=== PATIENT | female | born 1945 | race Caucasian/White ===

== ENCOUNTER 2017-11-15 16:53 | Inpatient (IN) | payer MEDICARE, OTHER ==
--- NOTE | 2017-11-15 17:52 | ED Physician Chart ---
ED Chief Complaint/HPI - Patient Information Date Seen:: 11/15/17 Time Seen:: 17:40 Chief Complaint:: combative behavior History of Present Illness:: Patient's been exhibiting combative behavior at his group home facility. She was reeportedly throwing food at others there. Historian:: Patient, Medical Records Review:: Transfer documents Reviewed ED Review of Systems - Review of Systems General/Constitutional: No fever, No chills Skin: No skin lesions Head: No headache Eyes: No loss of vision ENT: No earache Neck: No neck pain Cardio Vascular: No chest pain, No palpitations Pulmonary: No SOB GI: No nausea, No vomiting, No diarrhea G/U: No dysuria Musculoskeletal: No bone or joint pain, No back pain, No muscle pain Endocrine: No polyuria, No polydipsia Psychiatric: Prior psych history ED Past Medical History - Past Medical History Past Medical History: HTN, DM, Asthma/COPD, CVA/TIA, Other (acute on chronic respiratory failure; dependence on supplemental oxygen; sleep apnea; status post pulmonary edema; anemia; obesity; hypokalemia; major depression) Family History: Other (unavailable; patient is confused) Social History: Non Smoker, No Alcohol Surgical History: other (states she's had more than 20 surgeries) Family Medical History - Family Member Mother History Unknown: Yes Ethnicity: Non- Living Status: ED Physical Exam - Physical Examination General/Constitutional: Awake, Well-developed, well-nourished, Alert Other Gen/Cons comments:: Patient confused; states the year is 2012 Head: Atraumatic Eyes: Lids, conjuctiva normal, PERRL Skin: Nl inspection, No rash ENMT: External ears, nose nl, Nasal exam nl Other ENMT comments:: Edentulous Neck: No nuchal rigidity Respiratory: Nl effort/Exclusion, Clear to Auscultation Cardio Vascular: RRR, No murmur, gallop, rubs, NL S1 S2 GI: No tenderness/rebounding/guarding, No organomegaly Other Extremities comments:: 2 out of 4 pretibial pitting edema Neuro/Psych: No focal deficits ED Labs/Radiology/EKG Results - Lab Results Results: Laboratory Results - last 24 hr 11/15/17 11/15/17 18:05 18:05 WBC 5.9 RBC 4.22 Hgb 12.8 Hct 38.2 L MCV 90.5 MCH 30.3 MCHC Differential 33.5 RDW 16.0 Plt Count 268 MPV 7.6 Neutrophils % 50.9 Lymphocytes % 38.9 Monocytes % 7.9 Eosinophils % 2.0 Basophils % 0.3 Sodium 136 Potassium 3.8 Chloride 102 Carbon Dioxide 26.9 Anion Gap 10.9 BUN 24 Creatinine 1.3 H Est GFR ( Amer) TNP Est GFR (Non-Af Amer) TNP BUN/Creatinine Ratio 18.5 Glucose 94 Calcium 8.8 Total Bilirubin 0.3 AST 21 ALT 16 Alkaline Phosphatase 76 Total Protein 7.1 Albumin 4.3 Globulin 2.8 Albumin/Globulin Ratio 1.5 Triglycerides 107 Cholesterol 202 H LDL Cholesterol Direct 122 HDL Cholesterol 58 - EKG Interpretations Rate & Rhythm: normal sinus rhythm with a rate 85 [place]: normal ED Septic Shock - . Is Septic Shock (SBP<90, OR Lactate>4 mmol\L) present?: No ED Reassessment (Disposition) - Reassessment Reassessment Condition:: Unchanged - Diagnosis Diagnosis:: Combative behavior - Patient Disposition Admitted to:: [facility] Admitting Medical Physician:: Abram Garza Admitting Psych Physician:: Eldon Nance Condition at Disposition:: Stable, Unchanged
[2017-11-15 18:15] LABS: % BASOPHILS 0.3 % (0.0-2.0); % LYMPHOCYTES 38.9 % (20.0-50.0); % MONOCYTES 7.9 % (2.0-10.0); % NEUTROPHILS 50.9 % (40.0-80.0); EOSINOPHILE ABSOLUTE 0.1 Th/cmm (0.1-0.4); HEMATOCRIT 38.2 % (41.0-60); HEMOGLOBIN 12.8 gm/dL (12-16); LYMPHOCYTE ABSOLUTE 2.3 Th/cmm (1.5-3.0); MEAN CELL VOLUME 90.5 fl (81-100); MEAN CORPUSCULAR HEMOGLOBIN 30.3 pg (27.0-31.0); MEAN CORPUSCULAR HGB CONC 33.5 pg (28.0-36.0); MEAN PLATELET VOLUME 7.6 fl; MONOCYTE ABSOLUTE 0.5 Th/cmm (0.3-1.0); PLATELET COUNT 268 Th/cmm (150-400); RED BLOOD COUNT 4.22 Mil/cmm (3.80-5.20); WHITE BLOOD COUNT 5.9 Th/cmm (4.8-10.8)
[2017-11-15 18:26] LABS: ALB/GLOB RATIO 1.5 (1.0-1.8); ALBUMIN 4.3 gm/dL (3.7-5.3); ALKALINE PHOSPHATASE 76 U/L (34-104); ANION GAP 10.9 (7.0-16.0); BILIRUBIN,TOTAL 0.3 mg/dL (0.3-1.0); BUN - UREA NITROGEN 24 mg/dL (7-25); CALCIUM SERUM 8.8 mg/dL (8.6-10.3); CARBON DIOXIDE 26.9 mEq/L (21.0-31.0); CHLORIDE 102 mEq/L (98-107); CHOLESTEROL 202 mg/dL (<200); CREATININE - SERUM 1.3 mg/dL (0.6-1.2); GLUCOSE 94 mg/dL (70-105); HDL -HIGH DENSITY LIPOPROTEIN 58 mg/dL (23-92); POTASSIUM SERUM 3.8 mEq/L (3.5-5.1); SGOT 21 U/L (13-39); SGPT/ALT 16 U/L (7-52); SODIUM SERUM 136 mEq/L (136-145); TOTAL PROTEIN,SERUM 7.1 gm/dL (6.0-8.3); TRIGLYCERIDES 107 mg/dL (<150)
[2017-11-15 20:31] VITALS: BP 127/68
[2017-11-15] MEDS ORDERED: Magnesium Hydroxide (MOM) 30 mL UDC PO PRN (21:18)
[2017-11-15] MEDS ORDERED: Maalox 30 mL Cup PO PRN (21:18)
[2017-11-16] MEDS: APAP/Oxycodone 5/325mg Oral Tab PO PRN ×4 (01:30→21:08)
[2017-11-16] MEDS ORDERED: Magnesium Hydroxide (MOM) 30 mL UDC PO PRN (09:23)
[2017-11-16] MEDS ORDERED: Albuterol Nebulizer 2.5mg/3mL HHN PRN (09:23)
[2017-11-16] MEDS: INSULIN ASPART, RECOMBINANT 100 UNITS/ML SUBQ SCH ×2 (11:07→16:15)
[2017-11-16] MEDS ORDERED: Levothyroxine 0.125 Mg Tab PO SCH (11:30)
[2017-11-16] MEDS: Diltiazem 30 mg Tab PO SCH ×3 (12:01→21:20)
[2017-11-16] MEDS ORDERED: Non-Formulary Item 1 EA (Fluticasone/Salmeterol [Advair 250-50 Diskus] 1 PUFF) INH SCH (17:00)
[2017-11-16 18:26] LABS: A1C % 5.7 % (4.0-6.0)
[2017-11-17] MEDS: INSULIN ASPART, RECOMBINANT 100 UNITS/ML SUBQ SCH ×5 (02:52→23:18)
[2017-11-17] MEDS: Diltiazem 30 mg Tab PO SCH ×4 (03:00→21:30)
--- NOTE | 2017-11-17 05:43 | History & Physical ---
ADMIT DATE: 11/16/2017 PATIENT IDENTIFICATION: A 72-year-old female. CHIEF COMPLAINT: "I need my pain medication." HISTORY OF PRESENT ILLNESS: A 72-year-old female with a longstanding history of psychotic illness along with diabetes, hypertension, asthma, CVA, seizure disorder, hypothyroidism, takes multiple opioid and cleared for pain management, brought into the Emergency Room after the patient was having aggressive behavior at nursing facility. The patient was reportedly throwing food at others there. The patient was seen by ER and subsequently admitted to the psych facility. PAST MEDICAL HISTORY: Remarkable for: 1. Hypertension. 2. Diabetes. 3. Asthma. 4. CVA. 5. Chronic pain syndrome. 6. Obstructive sleep apnea. 7. Degenerative joint disease. 8. Psychotic disorder. MEDICATIONS: At home, the patient is taking multiple medications, which includes: 1. Tylenol. 2. Percocet. 3. Acetazolamide. 4. Albuterol and Atrovent nebulizer. 5. Bisacodyl. 6. Carvedilol. 7. Synthroid. 8. Dilantin. 9. Amiodarone. 10. Lasix. 11. Insulin. 12. Seroquel. 13. Potassium. 14. Magnesium oxide. 15. P.r.n. lorazepam. 16. Levothyroxine. 17. Sliding scale insulin. 18. Gabapentin. 19. Duloxetine. 20. Colace. 21. Cardizem. 22. Atorvastatin. 23. Vitamin C. ALLERGIES: The patient is not allergic to medications. SOCIAL HISTORY: The patient lives in a longterm. The patient has no history of any smoking cigarette. No history of any alcohol use. No history of any street drug use. FAMILY MEDICAL HISTORY: Remarkable for diabetes, hypertension, hyperlipidemia, coronary artery disease. REVIEW OF SYSTEMS: The patient currently denies any chest pain, shortness of breath, palpitation, dizziness, nausea, vomiting, diarrhea, dysuria, hematuria, hematochezia, or melena. No history of any seizure or syncopal episode. The patient is complaining about unable to walk due to her previous stroke. The patient denies any history of alternate diarrhea or constipation. The patient denies any history of any unusual skin rash. PHYSICAL EXAMINATION: GENERAL: The patient is alert, awake, lying in the bed without any acute distress. VITAL SIGNS: Temperature 98.6, pulse is 74, respiratory rate 18, blood pressure 134/70. HEENT: Normocephalic, atraumatic. Extraocular muscles are intact. Tongue is pink and coated. Absent dentition noted. NECK: Supple, no JVD, no hepatojugular reflex, no lymphadenopathy, thyromegaly, or carotid bruit. HEART: Both heart sounds are regular. No S3, no S4. CHEST: Lung equal in expansion, no wheezing, no crackles. ABDOMEN: Soft. No guarding, no rigidity. Liver and spleen are not palpable. No palpable mass. EXTREMITIES: No edema, cyanosis. NEUROLOGIC: Marked left-sided weakness noted with tremors involving the upper and lower extremity noted with intention. AVAILABLE DIAGNOSTIC DATA: Performed in the Emergency Room include white count of 5.9, hemoglobin 12.8, platelet count 268. BUN and creatinine are 24 and 1.3. Cholesterol is 202. HDL and LDL are 58 and 122 respectively. RPR is unremarkable. ____, no ST-T changes, representing acute ischemia. Chest x-ray, no evidence of any infiltrate. CLINICAL IMPRESSION: 1. Acute exacerbation of psychotic disorder. 2. Diabetes. 3. Hypertension. 4. Hyperlipidemia. 5. Cardiac arrhythmia. 6. Degenerative joint disease. 7. Obesity. 8. Obstructive sleep apnea. 9. Left-sided weakness. 10. Fall risk. 11. Decline in self-care and mobility. 12. Congestive heart failure by history. PLAN: 1. The patient is admitted at this time to psych facility for psychiatric treatment. 2. We will resume all her medication for the medical illnesses at this time, check Glucoscan a.c. and at bedtime. 3. Cover the blood sugar with sliding scale insulin. 4. Prescribe the pain medication as well. 5. Fall precaution will be given. 6. Nutritional support will be provided as well. 7. We will continue to follow this patient during her stay at [facility] at [facility]. I sincerely thank you, Dr. Abram Garza, for giving me the opportunity to participate in patient of yours. JOB# [id number]
[2017-11-17] MEDS ORDERED: Non-Formulary Item 1 EA (Duloxetine Hcl [Cymbalta] 60 MG) PO SCH (09:00)
--- NOTE | 2017-11-17 09:38 | Psychosocial Evaluation ---
DATE OF SERVICE: 11/15/2017 PSYCHIATRIC INITIAL EVALUATION AND MENTAL STATUS EXAM PATIENT'S AGE: 72-year-old. SEX: Female. PHYSICIAN: Abram Garza MD, MPH CHIEF COMPLAINT: Agitation and aggressive behavior. HISTORY OF PRESENT ILLNESS: The patient is a 72-year-old female who is a resident of [facility]. The patient has been aggressive and has been throwing objects towards other and food towards other residents. She also has not been able to follow any of the staff directions and has been in angry mood. The patient's behavior was getting worse and she was not able to follow any of instruction or directions and the patient was transferred to [facility] to monitor her condition and behavior. The patient has been agitated and in irritable mood. She also has been tense. She also has not been able to follow instructions and directions and at times has been combative. PAST PSYCHIATRIC HISTORY: Noncontributory and the patient does not have any history of psychiatric problems. PAST MEDICAL HISTORY: The patient has a history of hypertension as well as diabetes mellitus, bronchial asthma, COPD, CVA, TIA. SOCIAL HISTORY: The patient lives in [facility]. No known alcohol or drug use. ALLERGIES: No known allergies. MENTAL STATUS EXAMINATION: The patient appears her stated age. Anxious. Irritable mood. Thought processes are circumstantial. The patient seems to be paranoid and suspicious. The patient did not answer question regarding hallucinations or delusions or regarding suicide or homicide and she gets angry and agitated easily during the interview. The patient denies any thoughts of suicide or homicide. The patient is alert but seems to be confused and forgetful and she thinks that it is 2013. Poor insight and poor judgment. ASSESSMENT: PRIMARY DIAGNOSIS: Unspecified psychosis. Rule out schizoaffective disorder. MEDICAL DIAGNOSES: COPD. Congestive heart failure. Diabetes mellitus. Hypertension. TREATMENT PLAN: We will monitor the patient's behavior and condition closely. We will start individual as well as milieu psychotherapy. We will start the patient on Seroquel 25 mg twice a day and will adjust the dose. ESTIMATED LENGTH OF STAY: 5-7 days. THE PATIENT'S STRENGTHS AND WEAKNESSES: The patient's strength is not clear at this time. Weaknesses: Her ineffective coping. AFTER DISCHARGE PLAN: Outpatient treatment and followup. We will continue as an outpatient. CRITERIA FOR DISCHARGE: Better impulse control. Also, stabilization of psychotropic medications. JOB# [id number]
[2017-11-17] MEDS: Potassium Chloride Elixir 20 mEq /15 mL UDC PO SCH (09:44)
[2017-11-17 11:39] LABS: ALB/GLOB RATIO 1.6 (1.0-1.8); ALBUMIN 4.1 gm/dL (3.7-5.3); ALKALINE PHOSPHATASE 88 U/L (34-104); ANION GAP 11.3 (7.0-16.0); BILIRUBIN,TOTAL 0.4 mg/dL (0.3-1.0); BUN - UREA NITROGEN 20 mg/dL (7-25); CARBON DIOXIDE 27.1 mEq/L (21.0-31.0); CHLORIDE 104 mEq/L (98-107); CREATININE - SERUM 0.9 mg/dL (0.6-1.2); GLUCOSE 110 mg/dL (70-105); POTASSIUM SERUM 3.4 mEq/L (3.5-5.1); SGOT 21 U/L (13-39); SGPT/ALT 15 U/L (7-52); SODIUM SERUM 139 mEq/L (136-145); TOTAL PROTEIN,SERUM 6.7 gm/dL (6.0-8.3)
[2017-11-17 12:02] LABS: % EOSINOPHILS 2.3 % (0.0-5.0); % LYMPHOCYTES 36.7 % (20.0-50.0); % MONOCYTES 9.1 % (2.0-10.0); % NEUTROPHILS 51.9 % (40.0-80.0); EOSINOPHILE ABSOLUTE 0.1 Th/cmm (0.1-0.4); HEMATOCRIT 36.4 % (41.0-60); HEMOGLOBIN 11.9 gm/dL (12-16); LYMPHOCYTE ABSOLUTE 2.1 Th/cmm (1.5-3.0); MEAN CELL VOLUME 89.9 fl (81-100); MEAN CORPUSCULAR HEMOGLOBIN 29.4 pg (27.0-31.0); MEAN CORPUSCULAR HGB CONC 32.7 pg (28.0-36.0); MEAN PLATELET VOLUME 8.2 fl; MONOCYTE ABSOLUTE 0.5 Th/cmm (0.3-1.0); NEUTROPHILE ABSOLUTE 3.1 Th/cmm (1.8-8.0); PLATELET COUNT 240 Th/cmm (150-400); RED BLOOD COUNT 4.05 Mil/cmm (3.80-5.20); RED CELL DISTRIBUTION WIDTH 15.5 % (11.5-20.0); WHITE BLOOD COUNT 5.8 Th/cmm (4.8-10.8)
--- NOTE | 2017-11-17 20:08 | Progress Notes ---
DATE: 11/17/2017 SUBJECTIVE: The patient seen and examined. The patient is lying in the bed. The patient denies any chest pain, shortness of breath, palpitation, dizziness, nausea, vomiting, headache, or seizure. PHYSICAL EXAMINATION: VITAL SIGNS: Temperature is 98, pulse is 100, respiratory rate is 18, blood pressure is 143/84. HEENT: Normocephalic, atraumatic. Poor dentition noted. No facial asymmetry. NECK: Supple, no JVD, no lymphadenopathy. HEART: Both heart sounds are regular. CHEST: Lung equal in expansion with no expiratory wheezing. ABDOMEN: Soft. No guarding, no rigidity. Bowel sounds are present. EXTREMITIES: No edema. Peripheral pulses are +1. NEUROLOGIC: Left-sided weakness. CLINICAL IMPRESSION: 1. Diabetes. 2. Hypertension. 3. Hyperlipidemia. 4. Cardiac arrhythmia. 5. Obesity. 6. Obstructive sleep apnea. 7. Cerebrovascular accident with left-sided weakness. 8. Congestive heart failure. 9. Fall risk. PLAN: 1. Diabetic diet and glucose monitoring with sliding scale insulin with oral hypoglycemic agent. 2. Antihypertensive medicine. 3. Statin. 4. Amiodarone. 5. Oxygen p.r.n. 6. Fall precautions. 7. Antiplatelet therapy. 8. General nursing care. 9. We will continue to follow this patient during the stay. JOB# [id number]
[2017-11-17] MEDS: Albuterol Nebulizer 2.5mg/3mL HHN SCH (21:39)
[2017-11-17] MEDS: Budesonide 0.5 Mg/2 mL Ud HHN SCH (21:39)
[2017-11-18] MEDS: Albuterol Nebulizer 2.5mg/3mL HHN SCH ×4 (00:56→19:22)
[2017-11-18] MEDS: Diltiazem 30 mg Tab PO SCH ×4 (03:45→20:42)
[2017-11-18] MEDS: INSULIN ASPART, RECOMBINANT 100 UNITS/ML SUBQ SCH ×4 (06:43→20:56)
[2017-11-18] MEDS: Budesonide 0.5 Mg/2 mL Ud HHN SCH ×2 (07:08→19:22)
[2017-11-18] MEDS: Potassium Chloride Elixir 20 mEq /15 mL UDC PO SCH (10:02)
[2017-11-18] MEDS: Hydrocodone/APAP 10 mg/325 mg Tab PO PRN ×2 (11:21→18:47)
--- NOTE | 2017-11-18 14:24 | Progress Notes ---
DATE: 11/17/2017 SUBJECTIVE: Chart reviewed and the patient interviewed. Also discussed the patient's condition with the staff and reviewed records and labs. The patient is still loud and still yelling and screaming. The patient also is still agitated and restless and in irritable mood. She also has been depressed and wants to be left alone. Otherwise, the patient started on Cymbalta and Seroquel with no side effects. ASSESSMENT: The patient is still irritable and psychotic. TREATMENT PLAN: We will continue to monitor her behavior and her condition closely. Also, continue to work on adjusting psychotropic medications and followup. JOB# [id number]
[2017-11-19] MEDS: Hydrocodone/APAP 10 mg/325 mg Tab PO PRN (00:38)
--- NOTE | 2017-11-19 01:36 | Progress Notes ---
DATE: 11/18/2017 SUBJECTIVE: The patient was seen and examined. OBJECTIVE: GENERAL: The patient is lying in the bed. Denies any new complaint. VITAL SIGNS: Temperature 97, pulse is 64, respiratory rate 18, blood pressure 144/74. HEENT: No facial asymmetry. Poor dentition noted. NECK: Supple, no JVD. HEART: Regular. CHEST: Lung equal in expansion with no expiratory wheezing. ABDOMEN: Soft. No guarding, rigidity. Bowel sounds are present. EXTREMITIES: No edema. Peripheral pulses are +1. NEUROLOGIC: Left-sided weakness. Glucoscan reviewed. CLINICAL IMPRESSION: 1. Diabetes. 2. Hypertension. 3. Hyperlipidemia. 4. Cardiac arrhythmia. 5. Obesity. 6. Obstructive sleep apnea. 7. Cerebrovascular accident with left-sided weakness. 8. Congestive heart failure. 9. Degenerative joint disease. 10. Psychotic disorder. 11. Fall risk. PLAN: 1. Diabetes management. 2. Antihypertensive medicine. 3. Statin. 4. Amiodarone. 5. CPAP. 6. CVA prophylaxis. 7. Diuretics. 8. Fall precautions. 9. General nursing care. 10. Psychiatric evaluation and management defer to psychiatrist. 11. Care plan reviewed and discussed with staff. JOB# [id number]
[2017-11-19] MEDS: Albuterol Nebulizer 2.5mg/3mL HHN SCH ×4 (01:54→18:14)
[2017-11-19] MEDS: Diltiazem 30 mg Tab PO SCH ×4 (03:51→22:16)
[2017-11-19] MEDS: APAP/Oxycodone 5/325mg Oral Tab PO PRN (06:50)
[2017-11-19] MEDS: INSULIN ASPART, RECOMBINANT 100 UNITS/ML SUBQ SCH ×4 (06:59→20:48)
[2017-11-19] MEDS: Budesonide 0.5 Mg/2 mL Ud HHN SCH ×2 (07:32→18:15)
[2017-11-19] MEDS: Potassium Chloride Elixir 20 mEq /15 mL UDC PO SCH (09:33)
[2017-11-20] MEDS: APAP/Oxycodone 5/325mg Oral Tab PO PRN ×3 (01:29→20:00)
[2017-11-20] MEDS: Albuterol Nebulizer 2.5mg/3mL HHN SCH ×4 (02:09→20:16)
[2017-11-20] MEDS: Diltiazem 30 mg Tab PO SCH ×4 (03:45→21:30)
[2017-11-20] MEDS: INSULIN ASPART, RECOMBINANT 100 UNITS/ML SUBQ SCH ×4 (06:53→21:08)
[2017-11-20] MEDS: Budesonide 0.5 Mg/2 mL Ud HHN SCH ×2 (07:08→20:16)
[2017-11-20] MEDS: Potassium Chloride Elixir 20 mEq /15 mL UDC PO SCH (09:37)
--- NOTE | 2017-11-20 12:37 | Progress Notes ---
DATE: 11/18/2017 SUBJECTIVE: Chart reviewed and the patient interviewed. Also discussed the patient's condition with the staff and reviewed records and labs. The patient is still confused and forgetful. The patient also is still focused on her pain medications. She is yelling and screaming and she is still demanding and unable to follow directions. Also, resisting care at times. ASSESSMENT: The patient is still agitated and needs close monitoring. TREATMENT PLAN: We will continue monitoring her behavior and her condition closely. Also, continue adjusting psychotropic medications and working on behavior modification. JOB# [id number]
--- NOTE | 2017-11-20 16:43 | General Progress Note ---
Subjective - Review of Systems Subjective: Patient is seen and examined. No new events. Objective - Results Result Diagrams: 11/17/17 11:01 11/17/17 11:01 Recent Labs: Laboratory Last Values WBC 5.8 Th/cmm (4.8-10.8) 11/17/17 11:01 RBC 4.05 Mil/cmm (3.80-5.20) 11/17/17 11:01 Hgb 11.9 gm/dL (12-16) L 11/17/17 11:01 Hct 36.4 % (41.0-60) L 11/17/17 11:01 MCV 89.9 fl (81-100) 11/17/17 11:01 MCH 29.4 pg (27.0-31.0) 11/17/17 11:01 MCHC Differential 32.7 pg (28.0-36.0) 11/17/17 11:01 RDW 15.5 % (11.5-20.0) 11/17/17 11:01 Plt Count 240 Th/cmm (150-400) 11/17/17 11:01 MPV 8.2 fl 11/17/17 11:01 Neutrophils % 51.9 % (40.0-80.0) 11/17/17 11:01 Lymphocytes % 36.7 % (20.0-50.0) 11/17/17 11:01 Monocytes % 9.1 % (2.0-10.0) 11/17/17 11:01 Eosinophils % 2.3 % (0.0-5.0) 11/17/17 11:01 Basophils % 0.0 % (0.0-2.0) 11/17/17 11:01 Sodium 139 mEq/L (136-145) 11/17/17 11:01 Potassium 3.4 mEq/L (3.5-5.1) L 11/17/17 11:01 Chloride 104 mEq/L (98-107) 11/17/17 11:01 Carbon Dioxide 27.1 mEq/L (21.0-31.0) 11/17/17 11:01 Anion Gap 11.3 (7.0-16.0) 11/17/17 11:01 BUN 20 mg/dL (7-25) 11/17/17 11:01 Creatinine 0.9 mg/dL (0.6-1.2) 11/17/17 11:01 Est GFR ( Amer) TNP 11/17/17 11:01 Est GFR (Non-Af Amer) TNP 11/17/17 11:01 BUN/Creatinine Ratio 22.2 11/17/17 11:01 Glucose 110 mg/dL (70-105) H 11/17/17 11:01 POC Glucose 101 MG/DL (70 - 105) 11/20/17 05:34 Hemoglobin A1c % 5.7 % (4.0-6.0) 11/15/17 18:05 Calcium 9.0 mg/dL (8.6-10.3) 11/17/17 11:01 Total Bilirubin 0.4 mg/dL (0.3-1.0) 11/17/17 11:01 AST 21 U/L (13-39) 11/17/17 11:01 ALT 15 U/L (7-52) 11/17/17 11:01 Alkaline Phosphatase 88 U/L (34-104) 11/17/17 11:01 Total Protein 6.7 gm/dL (6.0-8.3) 11/17/17 11:01 Albumin 4.1 gm/dL (3.7-5.3) 11/17/17 11:01 Globulin 2.6 gm/dL 11/17/17 11:01 Albumin/Globulin Ratio 1.6 (1.0-1.8) 11/17/17 11:01 Triglycerides 107 mg/dL (<150) 11/15/17 18:05 Cholesterol 202 mg/dL (<200) H 11/15/17 18:05 LDL Cholesterol Direct 122 mg/dL (75-193) 11/15/17 18:05 HDL Cholesterol 58 mg/dL (23-92) 11/15/17 18:05 TSH 3.22 uIU/ml (0.34-5.60) 11/15/17 18:05 RPR NONREACTIVE (NONREACTIVE) 11/15/17 18:05 - Physical Exam Vitals and I&O: Vital Signs Temp 98.0 F 11/20/17 06:36 Pulse 76 11/20/17 14:01 Resp 20 11/20/17 14:01 BP 125/94 11/20/17 09:37 Pulse Ox 97 11/20/17 14:01 Intake & Output 11/19/17 11/20/17 11/20/17 18:59 06:59 18:59 Intake Total 480 Balance 480 Intake: Oral 480 Other: # Voids 2 Stool Characteristics Formed Active Medications: Current Medications Acetaminophen (Tylenol) 650 mg PO Q4HR PRN PRN Reason: Mild Pain / Temp above 100 Stop: 01/14/18 21:17 Acetaminophen (Tylenol) 650 mg PO BID [facility] Stop: 01/15/18 10:59 Last Admin: 11/20/17 09:36 Dose: 650 mg Acetaminophen/Hydrocodone Bitart ([place] 10 Mg/325 Mg) 1 tab PO Q4H PRN PRN Reason: Pain (Moderate) Stop: 01/14/18 23:23 Last Admin: 11/19/17 00:38 Dose: 1 tab Acetazolamide (Diamox) 250 mg PO DAILY [facility] Stop: 01/15/18 10:59 Last Admin: 11/20/17 09:36 Dose: 250 mg Al Hydrox/Mg Hydrox/Simethicone (Maalox) 30 ml PO Q4HR PRN PRN Reason: GI DISTRESS Stop: 01/14/18 21:17 Albuterol Sulfate (Albuterol 2.5mg/3ml Neb Ud) 2.5 mg HHN Q6H PRN PRN Reason: Shortness of Breath Stop: 01/15/18 09:22 Albuterol Sulfate (Albuterol 2.5mg/3ml Neb Ud) 2.5 mg HHN Q6HRT [facility] Stop: 01/15/18 12:59 Last Admin: 11/20/17 14:01 Dose: Not Given Amiodarone HCl (Cordarone) 400 mg PO BID [facility] Stop: 01/15/18 16:59 Last Admin: 11/20/17 09:37 Dose: 400 mg Ascorbic Acid (Vitamin C) 500 mg PO DAILY [facility] Stop: 01/15/18 10:59 Last Admin: 11/20/17 09:37 Dose: 500 mg Atorvastatin Calcium (Lipitor) 40 mg PO HS [facility] Stop: 01/15/18 20:59 Last Admin: 11/19/17 21:36 Dose: 40 mg Bisacodyl (Dulcolax 10 Mg Supp) 10 mg RC Q72H PRN PRN Reason: BOWEL MANAGEMENT Stop: 01/15/18 09:22 Budesonide (Pulmicort) 0.5 mg HHN BIDRT [facility] Stop: 01/15/18 18:59 Last Admin: 11/20/17 07:08 Dose: 0.5 mg Carvedilol (Coreg) 12.5 mg PO BID [facility] Stop: 01/15/18 10:59 Last Admin: 11/20/17 09:37 Dose: 12.5 mg Diltiazem HCl (Cardizem) 60 mg PO Q6H [facility] Stop: 01/15/18 09:29 Last Admin: 11/20/17 09:38 Dose: 60 mg Docusate Sodium (Colace) 100 mg PO BID [facility] Stop: 01/15/18 16:59 Last Admin: 11/20/17 09:37 Dose: 100 mg Duloxetine HCl (Cymbalta) 30 mg PO DAILY [facility] PRN Reason: Protocol Stop: 01/15/18 08:59 Last Admin: 11/20/17 09:37 Dose: 30 mg Furosemide (Lasix) 40 mg PO BID [facility] Stop: 01/15/18 10:59 Last Admin: 11/20/17 09:37 Dose: 40 mg Gabapentin (Neurontin) 900 mg PO Q8H [facility] Stop: 01/15/18 13:59 Last Admin: 11/20/17 14:14 Dose: 900 mg Insulin Aspart (Novolog) 1 units SUBQ ACHS [facility] PRN Reason: Protocol Stop: 01/15/18 11:29 Last Admin: 11/20/17 12:51 Dose: Not Given Levothyroxine Sodium 0.1 mg/ (Levothyroxine Sodium 0.025 mg) 0.125 mg PO QDAC [facility] Stop: 01/15/18 11:59 Last Admin: 11/20/17 06:52 Dose: 0.125 mg Lorazepam (Ativan) 0.5 mg PO Q4HR PRN; Protocol PRN Reason: Anxiety/agitation Stop: 12/15/17 21:17 Last Admin: 11/20/17 04:06 Dose: 0.5 mg Magnesium Hydroxide (Milk Of Magnesia) 30 ml PO HS PRN PRN Reason: Constipation Magnesium Hydroxide (Milk Of Magnesia) 30 ml PO Q72HR PRN PRN Reason: BOWEL MANAGEMENT Stop: 01/15/18 09:22 Mupirocin (Bactroban Oint) 1 appl NS BID [facility] Stop: 11/21/17 09:01 Last Admin: 11/20/17 09:36 Dose: 1 appl Oxycodone/Acetaminophen (Percocet 5/325mg Oral Tab) 1 tab PO Q4H PRN PRN Reason: Pain (Severe) Last Admin: 11/20/17 14:15 Dose: 1 tab Phenytoin (Dilantin) 300 mg PO DAILY [facility] Stop: 01/16/18 08:59 Last Admin: 11/20/17 09:37 Dose: 300 mg Potassium Chloride (Potassium Chloride Elixir) 40 meq PO DAILY [facility] Stop: 01/16/18 08:59 Last Admin: 11/20/17 09:37 Dose: 40 meq Quetiapine Fumarate (Seroquel) 25 mg PO BID [facility] PRN Reason: Protocol Stop: 01/15/18 08:59 Last Admin: 11/20/17 09:37 Dose: 25 mg Senna (Senna) 8.6 mg PO HS [facility] Stop: 01/15/18 20:59 Last Admin: 11/19/17 21:36 Dose: 8.6 mg Zinc Sulfate (Zinc Sulfate) 220 mg PO DAILY [facility] Stop: 01/16/18 08:59 Last Admin: 11/20/17 09:38 Dose: 220 mg Zolpidem Tartrate (Ambien) 5 mg PO HS PRN PRN Reason: Insomnia Stop: 01/14/18 21:17 Last Admin: 11/19/17 21:38 Dose: 5 mg General: Alert, Cooperative, No acute distress HEENT: Atraumatic, EOMI, Mucous membr. moist/pink Neck: Supple Cardiovascular: Regular rate, Normal S1, Normal S2 Lungs: Normal air movement Abdomen: Bowel sounds, Soft Extremities: Other (pp+1) Assessment/Plan - Assessment Assessment: Diabetes. Hypertension. hyperlipedemia. Cardiac arryhthmia. CVA DJD FERN Fall Risk. CHF. - Plan Plan: Monitor glucose MOnitor lab. Monitor vitals Diabetes management Anti htn meds Psych meds Continue current care Discussed with staff.
[2017-11-20] MEDS: Hydrocodone/APAP 10 mg/325 mg Tab PO PRN (20:00)
[2017-11-21] MEDS: Albuterol Nebulizer 2.5mg/3mL HHN SCH ×4 (01:00→19:57)
[2017-11-21] MEDS: Diltiazem 30 mg Tab PO SCH ×4 (03:25→22:00)
[2017-11-21] MEDS: APAP/Oxycodone 5/325mg Oral Tab PO PRN ×4 (03:25→21:38)
[2017-11-21] MEDS: INSULIN ASPART, RECOMBINANT 100 UNITS/ML SUBQ SCH ×4 (06:30→22:01)
[2017-11-21] MEDS: Budesonide 0.5 Mg/2 mL Ud HHN SCH ×2 (07:07→19:58)
[2017-11-21] MEDS: Potassium Chloride Elixir 20 mEq /15 mL UDC PO SCH (09:15)
--- NOTE | 2017-11-21 22:40 | Progress Notes ---
DATE: 11/21/2017 SUBJECTIVE: The patient seen and examined. The patient's room is [facility], bed A. Available medication ____ are also reviewed. PHYSICAL EXAMINATION: GENERAL: The patient is currently lying in the bed. There is no new complaint. VITAL SIGNS: Temperature 98, pulse is 87, respiratory rate 18, blood pressure 122/74. Glucose is reviewed. HEENT: No facial asymmetry. NECK: Supple. No JVD. No lymphadenopathy or thyromegaly. HEART: Both heart sounds are regular. CHEST: Lung equal in expansion. No wheezing or crackles. ABDOMEN: Soft. No guarding, no rigidity. Liver, spleen palpable. No palpable mass. EXTREMITIES: No edema. Peripheral pulses are +1. NEUROLOGIC: Left-sided weakness noted with a resting tremor. CLINICAL IMPRESSION: 1. Diabetes. 2. Hypertension. 3. Hyperlipidemia. 4. Cardiac arrhythmia. 5. Degenerative joint disease. 6. Obstructive sleep apnea. 7. Cerebrovascular accident with left-sided weakness. 8. Fall risk. 9. Decline in self-care. PLAN: 1. Psych evaluation and management defer to psychiatrist. 2. Monitor blood sugar, blood pressure. 3. Insulin therapy. 4. Antihypertensive medications. 5. Statin. 6. Amiodarone. 7. CPAP. 8. Antiplatelet therapy. 9. Fall precautions. 10. General nursing care. 11. Nutritional supplement. 12. Care plan reviewed and discussed with staff. JOB# [id number]
--- NOTE | 2017-11-21 23:20 | Progress Notes ---
DATE: 11/19/2017 SUBJECTIVE: Chart reviewed and the patient interviewed. Also discussed the patient's condition with the staff and reviewed records and labs. The patient is still anxious and depressed. The patient also is still crying at times. She also is still delusional and paranoid and she is still hyperverbal. The patient also still needs lots of redirections and she is still rambling. Otherwise, the patient is compliant with taking her medications with no side effects of medications. ASSESSMENT: The patient is still psychotic and still needs close monitoring. TREATMENT PLAN: Continue monitoring her behavior and her condition closely. Also, continue adjusting psychotropic medications and follow up closely. JOB# [id number]
[2017-11-22] MEDS: Albuterol Nebulizer 2.5mg/3mL HHN SCH ×2 (01:22→07:42)
[2017-11-22] MEDS: Diltiazem 30 mg Tab PO SCH ×2 (03:10→09:16)
[2017-11-22] MEDS: INSULIN ASPART, RECOMBINANT 100 UNITS/ML SUBQ SCH ×2 (06:35→11:16)
[2017-11-22] MEDS: Budesonide 0.5 Mg/2 mL Ud HHN SCH (07:42)
[2017-11-22] MEDS: Potassium Chloride Elixir 20 mEq /15 mL UDC PO SCH (09:08)
[2017-11-22] MEDS: APAP/Oxycodone 5/325mg Oral Tab PO PRN (09:09)
--- NOTE | 2017-11-22 22:15 | Progress Notes ---
DATE: 11/22/2017 SUBJECTIVE: The patient seen and examined. The patient is lying in the bed. No new complaint. Available Glucoscan is reviewed. PHYSICAL EXAMINATION: VITAL SIGNS: Temperature 98, pulse is 86, respiratory rate 18, blood pressure 130/69. HEENT: No facial asymmetry. Poor dentition noted. NECK: Supple, no JVD, no lymphadenopathy, thyromegaly. HEART: Heart sounds are regular. CHEST: Equal in expansion, no wheezing. ABDOMEN: Soft, no guarding or rigidity. Bowel sounds are present. EXTREMITIES: No edema. NEUROLOGIC: Left-sided weakness. Available Glucoscan is reviewed. CLINICAL IMPRESSION: 1. Diabetes. 2. Hypertension. 3. Hyperlipidemia. 4. Cardiac arrhythmia. 5. Degenerative joint disease. 6. Cerebrovascular accident. 7. Fall risk. 8. Decline in self-care. 9. Psychotic disorder exacerbation. PLAN: 1. Psych evaluation and management deferred to psychiatrist. 2. Diabetes management. 3. Antihypertensive medication. 4. Statin. 5. Albuterol. 6. Fall precautions. 7. Antiplatelet therapy. 8. General nursing care. 9. Follow lab. 10. We will continue to follow the patient during the stay in the hospital. JOB# [id number]
--- NOTE | 2017-11-23 00:33 | Discharge Summary ---
DATE OF DISCHARGE: 11/22/2017 PATIENT'S AGE: 72. SEX: Female. PHYSICIAN: Abram Garza MD, MPH CHIEF COMPLAINT: Major depression, moderate, with psychotic features. REASON FOR HOSPITALIZATION: The patient was admitted to the hospital because of increased pain and fear and anxiety and irritability. HOSPITAL COURSE: The patient continued to be anxious and in irritable mood. The patient also is still depressed but her affect was brighter. The patient was focused on Percocet, which is her pain medications. Gradually the patient's affect was brighter and the patient was still asking for pain medications, but less than before. The patient was not suicidal or homicidal, and the patient was discharged from the hospital. Physical exam of the patient showed no major medical problems while in the hospital. No abnormal labs. AFTER DISCHARGE PLANS: The patient discharged from the hospital and returned back to [facility] with plans for followup there. EXPECTED OUTCOME AFTER DISCHARGE: Fair if the patient continued to take her psychotropic medications and follow up with discharge and treatment plans. [facility]# [id number]
--- NOTE | 2017-11-23 08:41 | Progress Notes ---
DATE: 11/20/2017 SUBJECTIVE: Chart reviewed and the patient interviewed. Also, discussed the patient's condition with the staff and reviewed records and labs. The patient is still delusional. The patient also still has crying spells. She also is rambling and needs lots of redirections. The patient also still has thought processes that are circumstantial and tangential with occasional pressured speech. Otherwise, the patient is compliant with taking her medications with no side effects of medications. ASSESSMENT: The patient is still depressed and psychotic. TREATMENT PLAN: Continue to monitor her behavior and her medications closely. Also, continue adjusting psychotropic medications and continue Cymbalta 30 mg everyday and follow up closely. [facility]# [id number]
--- NOTE | 2017-11-23 10:13 | Progress Notes ---
DATE: 11/21/2017 SUBJECTIVE: Chart reviewed and the patient interviewed. Also discussed the patient's condition with the staff and reviewed records and labs. The patient is still med seeking and she is focused on Percocet and Ativan. The patient also is still anxious and depressed, had episodes of irritability. She, on the other hand easier to redirect her and easier to understand about her issues and problems. Otherwise, the patient is compliant with medicine with no side effect of the medicine. The patient also denies any thoughts of suicide or homicide. ASSESSMENT: The patient is still depressed and agitated. TREATMENT PLAN: We will continue to monitor her behavior and her condition closely. Also, increase Cymbalta to 30 mg twice a day and we will continue to follow up closely. [facility]# [id number]
== END 2017-11-22 13:15 | disposition home or self-care (01) | DRG 885 ==
LOC: ER 16:53 → GERO 19:25
PROVIDERS: ADMIT Psychiatry & Neurology Psychiatry; ATTEND Psychiatry & Neurology Psychiatry
DX: F33.1 Major depressive disorder, recurrent, moderate (principal); J96.10 Chronic respiratory failure, unspecified whether with hypoxia or hypercapnia; I11.0 Hypertensive heart disease with heart failure; I50.9 Heart failure, unspecified; I69.354 Hemiplegia and hemiparesis following cerebral infarction affecting left non-dominant side; F29 Unspecified psychosis not due to a substance or known physiological condition; E11.9 Type 2 diabetes mellitus without complications; J44.9 Chronic obstructive pulmonary disease, unspecified; E66.9 Obesity, unspecified; E78.5 Hyperlipidemia, unspecified; I49.9 Cardiac arrhythmia, unspecified; M19.90 Unspecified osteoarthritis, unspecified site; G47.33 Obstructive sleep apnea (adult) (pediatric); G40.909 Epilepsy, unspecified, not intractable, without status epilepticus; G89.4 Chronic pain syndrome; Z79.4 Long term (current) use of insulin; Z91.81 History of falling; Z68.32 Body mass index [BMI] 32.0-32.9, adult; Z99.81 Dependence on supplemental oxygen
CPT/HCPCS: 36415-UA; 80053-TC; 80061-TC; 82948-90; 83036-90; 84443-TC; 85025-TC; 86592-TC; 93005; 94640; 94760; J1815; J7613; Z7610